=== PATIENT | female | born 1975 | race Caucasian/White ===

== ENCOUNTER 2020-11-01 17:41 | Emergency (ER) | payer OTHER ==
[~2020-11-01] VITALS: Ht 165.1 cm; Wt 92.0 kg
[2020-11-01 17:50] VITALS: BP 133/96
--- NOTE | 2020-11-01 17:59 | PHYS DOC ---
Adult General Chief Complaint Chief Complaint: BACK PAIN OR INJURY HPI HPI Patient is a 45-year-old female presents to the emergency department of right lower back pain. Patient states she did not injure her back, patient states she has been working all day doing housework bending over, patient states that she now has low back pain on the right side, there is no radiation of this pain. Patient denies any midline spinal tenderness pain. Patient denies any urinary problems, denies vaginal discharge, denies STI concerns. Patient denies any numbness or tingling down her legs, denies any strange sensations or pains in her buttocks. Patient denies any other injuries or physical ailments. Patient denies fever or chills, nausea, vomiting, diarrhea, abdominal pains. Patient denies seeing any blood in her urine. Patient reports her pain at a 8/10 1-10 pain scale. Patient denies loss of bowel or bladder. Review of Systems Review of Systems 14 body systems of review of systems have been reviewed. See HPI for pertinent positives and negative responses, otherwise all other systems are negative, nonpertinent or noncontributory. Current Medications Current Medications Patient states she does not take medications at home. Allergies Allergies Patient reports an allergy to Sudafed. Physical Exam Physical Exam Constitutional: Well developed, well nourished, no acute distress, non-toxic appearance. HENT: Normocephalic, atraumatic, bilateral external ears normal, oropharynx moist, no oral exudates, nose normal. Eyes: PERRLA, EOMI, conjunctiva normal, no discharge. Neck: Normal range of motion, no tenderness, supple, no stridor. Cardiovascular:Heart rate regular rhythm, no murmur Lungs & Thorax: Bilateral breath sounds clear to auscultation Abdomen: Bowel sounds normal, soft, no tenderness, no masses, no pulsatile masses. Skin: Warm, dry, no erythema, no rash. Back: no CVA tenderness. Tenderness to palpation right lower lumbar area without radiation of pain, no numbness or tingling down either extremity, no numbness or tingling down either buttock region, no midline spinal tenderness. Full AROM/PROM. Distal cap refill less than 2 seconds, +2 dorsalis pedis/posterior tibial pulses. No edema noted of the lower extremities. No abnormal thoracic spine curvatures, no asymmetry of hips or shoulders noted, no signs of spinal splinting during ambulation. Straight leg raise test negative for nerve root compression or sciatica Extremities: No tenderness, no cyanosis, no clubbing, ROM intact, no edema. Neurologic: Alert and oriented X 3, normal motor function, normal sensory function, no focal deficits noted. Psychologic: Affect normal, judgement normal, mood normal. EKG EKG [] Radiology/Procedures Radiology/Procedures [] Heart Score Risk Factors: Risk Factors: DM, Current or recent (<one month) smoker, HTN, HLP, family history of CAD, obesity. Risk Scores: Risk Factors: DM, Current or recent (<one month) smoker, HTN, HLP, family history of CAD, obesity. Course & Med Decision Making Course & Med Decision Making Pertinent Labs and Imaging studies reviewed. (See chart for details) 45-year-old female presents emergency department with right lower back pain, nontraumatic injury, patient states she had been working all day doing housework bending over, feels like her back pain has exacerbated because of that. Physical examination was consistent with lumbar go, there was no saddle anesthesia noted, this is unlikely, spondylolysis, spondylolisthesis, scoliosis, osteomyelitis, discitis, Shermans disease, pyelonephritis, pancreatitis, osteoid osteoma, or Ho sarcoma, low likelihood of sciatica, herniated nuclear this pulposis. The patient's urine was not infected, there was no blood in her urine suggesting a kidney stone. Patient was given an IM injection of 60 mg Toradol, 80 mg Depo-Medrol IM, 10 mg p.o. Flexeril tablet. Upon reexamination of the patient, patient's pain had reduced well, patient stat es she is feeling much better, nancy with patient diagnosis of lumbago versus a possible lumbar strain, patient will be discharged home with medications of 600 mg Motrin, 10 mg Flexeril tablets, patient gave verbal understanding of discharge home instructions, medication prescription use, follow-up with her doctor soon, return to ER precautions and concerns, patient had no further q uestions or concerns, patient discharged home without incident. Diagnosis of lumbar go, differential diagnosis of muscle strain of the low back right side. Dragon Disclaimer Dragon Disclaimer This electronic medical record was generated, in whole or in part, using a voice recognition dictation system. Departure Departure: Impression: Primary Impression: Lumbago Disposition: 01 DC HOME SELF CARE/HOMELESS Condition: IMPROVED Referrals: PCP,CASIE (PCP) Patient Instructions: Lumbosacral Strain Additional Instructions: Please take medications as prescribed, follow-up with your doctor soon, return to the emergency department for worsening symptoms or other concerns. Scripts Cyclobenzaprine Hcl (CYCLOBENZAPRINE HCL) 10 Mg Tablet 10 MG PO PRN Q8HRS PRN for MUSCLE SPASMS, #10 TAB 0 Refills Prov: LORRIE VALDOVINOS APRN 11/01/20 Ibuprofen (IBUPROFEN) 600 Mg Tablet 600 MG PO PRN Q6-8HRS PRN for PAIN, #20 TAB 0 Refills Prov: LORRIE VALDOVINOS APRN 11/01/20 Problem Qualifiers Primary Impression: Lumbago Chronicity: acute Back pain laterality: right Sciatica presence: without sciatica Qualified Codes: M54.5 - Low back pain LORRIE VALDOVINOS APRN Nov 01, 2020 17:59
[2020-11-01] MEDS ORDERED: KETOROLAC 60 MG/2 ML VIAL. IM ONE (18:15)
[2020-11-01] MEDS ORDERED: methylPREDNISolone ACETATE 80 MG/ML VIAL. IM ONE (18:15)
[2020-11-01 18:43] LABS: BACTERIA,URINE 0 /HPF (0-FEW); BILIRUBIN,URINE NEG (NEG); CLARITY,URINE CLEAR; COLOR,URINE YELLOW; GLUCOSE,URINE NEG (NEG); NITRITE,URINE NEG (NEG); SQUAMOUS EPITHELIAL CELL,UR MOD /LPF; WBC,URINE 0 /HPF (0-4)
[2020-11-01] MEDS ORDERED: CYCLOBENZAPRINE 10 MG TABLET. PO ONE (18:45)
[2020-11-01] MEDS ORDERED: IBUP600T16 PO (18:59)
[2020-11-01] MEDS ORDERED: CYCL-331 PO (18:59)
== END 2020-11-01 19:05 | disposition home or self-care (01) ==
LOC: ER 17:41
DX: M54.5 Low back pain (principal); Z88.8 Allergy status to other drugs, medicaments and biological substances
CPT/HCPCS: 81001; 81025; 96372; 99284; J1040; J1885

== ENCOUNTER 2021-07-25 19:30 | Emergency (ER) | payer OTHER ==
[~2021-07-25] VITALS: Ht 167.6 cm; Wt 86.4 kg
[~2021-07-25 19:30] MED LIST: CYCL-331 PO; IBUP600T16 PO
--- NOTE | 2021-07-25 19:33 | PHYS DOC ---
Past History Past Medical History: Migraines, Other Additional Past Medical Histor: back pain in the past Past Surgical History: Tubal ligation Additional Past Surgical Histo: hernia repair Alcohol Use: Rarely Adult General HPI HPI Patient is a 45-year-old female with a past medical history of migraines who presents with a chief complaint of migraine. States has been going on for about 4 days, whole head, with some photophobia but no phonophobia, mild nausea but no vomiting. [facility] she is taking some Excedrin at home with only minimal relief. [facility] she gets migraines about 5 or 6 times a month and has an upcoming appointment with a neurologist. [facility] she is never had any imaging. States that these migraines started about 5 or 6 years ago. Denies any recent traumas, travels, illnesses, fevers, chest pain, shortness of breath, abdominal pain, dysuria, hematuria, blood in the stool or diarrhea. Denies any numbness/weakness/tingling. Denies any trouble sitting, standing or walking. Review of Systems Review of Systems Review of systems otherwise unremarkable except noted in HPI Allergies Allergies Allergies Coded Allergies Type Severity Reaction Last Updated Verified pseudoephedrine Allergy Unknown Hives 11/01/20 Yes Physical Exam Physical Exam Constitutional: Well developed, well nourished, no acute distress, non-toxic appearance. [] HENT: Normocephalic, atraumatic, bilateral external ears normal, oropharynx moist, no oral exudates, nose normal. [] Eyes: PERRLA, EOMI, conjunctiva normal, no discharge. [] Neck: Normal range of motion, no tenderness, supple, no stridor. [] Cardiovascular:Heart rate regular rhythm, no murmur [] Lungs & Thorax: Bilateral breath sounds clear to auscultation [] Abdomen: soft, no tenderness, no masses, no pulsatile masses. [] Skin: Warm, dry, no erythema, no rash. [] Back: No tenderness, no CVA tenderness. [] Extremities: No tenderness, ROM intact, no edema. [] Neurologic: Alert and oriented X 3, no focal deficits noted. [] Psychologic: Affect normal, judgement normal, mood normal. [] EKG EKG [] Radiology/Procedures Radiology/Procedures [] Heart Score C/O Chest Pain: No Risk Factors: Risk Factors: DM, Current or recent (<one month) smoker, HTN, HLP, family history of CAD, obesity. Risk Scores: Risk Factors: DM, Current or recent (<one month) smoker, HTN, HLP, family history of CAD, obesity. Course & Med Decision Making Course & Med Decision Making Patient is 45-year-old female who presents with a chief complaint of migraine Vital signs not concerning. Physical exam noted above. Patient placed on monitor with IV access established, negative and migraine cocktail given. Steroids, Tylenol and Flexeril added. CT of the head not concerning. On reassessment patient was up, awake alert and oriented no acute distress, stating that her migraine has reduced to a normal headache and was ready to go home. Discussed management at home. Advised to follow-up first thing morning with primary care physician and neurologist to set up follow-up appointments. Advised to come back to the ED with new or concerning symptoms. Patient grateful, verbalized understanding and agreed with plan of discharge. Dragon Disclaimer Dragon Disclaimer This electronic medical record was generated, in whole or in part, using a voice recognition dictation system. Departure Departure: Impression: Primary Impression: Migraine Disposition: 01 HOME / SELF CARE / HOMELESS Condition: GOOD Referrals: PCP,UNKNOWN (PCP) [facility] Patient Instructions: Migraine Headache, Recurrent Migraine Headache Additional Instructions: Thank you for coming into the emergency department tonight and allowing us to take care of you. Please read all the attached information carefully to go back over things we discussed. You can continue Tylenol, ibuprofen, and Benadryl at home as needed and as discussed. Please follow-up in the morning with your primary care physician to set up a follow-up visit as soon as possible for reevaluation. Please come back to the ED with new or concerning symptoms as discussed. MARBIN ESTEVEZ MD Jul 25, 2021 19:33
[2021-07-25] MEDS ORDERED: IV RINGERS SOLUTION,LACTATED 1,000 ML IV ONE (20:00)
[2021-07-25] MEDS ORDERED: ONDANSETRON PF 4 MG/2 ML VIAL. IVP ONE (20:30)
[2021-07-25] MEDS ORDERED: KETOROLAC 15 MG/ML VIAL. IVP ONE (20:30)
[2021-07-25] MEDS ORDERED: PROCHLORPERAZINE 10 MG/2 ML VIAL. IV ONE (20:30)
[2021-07-25] MEDS ORDERED: diphenhydrAMINE 50 MG/ML VIAL IVP ONE (20:30)
--- NOTE | 2021-07-25 20:53 | RAD ---
Exam: CT head INDICATION: New onset migraines TECHNIQUE: Sequential axial images through the head were obtained without the administration of IV co ntrast. Exposure: One or more of the following in the visualized dose reduction techniques were utilized for this examination: 1. Automated exposure control 2. Adjustment of the MA and/or KV according to patient size 3. Use of iterative of reconstructive technique Comparisons: None FINDINGS: No focal parenchymal lesion or hemorrhage is identified. There is no midline shift or sulcal effaceme nt. No acute vascular territory infarction is identified. Merritt-white distinction is preserved. The ventricular system is within normal limits without compression hydrocephalus. The basal cisterns are well maintained. The visualized portions of the paranasal sinuses and mastoid air cells are well-pneumatized. No acute fractures. IMPRESSION: No acute intracranial abnormality. Electronically signed by: Mae Hebert MD (07/25/2021 8:50 PM) [facility]
[2021-07-25] MEDS ORDERED: ACETAMINOPHEN 500 MG TABLET PO ONE (21:15)
[2021-07-25] MEDS ORDERED: DEXAMETHASONE 4 MG TABLET PO ONE (21:15)
[2021-07-25] MEDS ORDERED: CYCLOBENZAPRINE 10 MG TABLET. PO ONE (21:15)
[2021-07-25 21:50] VITALS: BP 116/68
== END 2021-07-25 21:30 | disposition home or self-care (01) ==
LOC: ER 19:30
DX: G43.909 Migraine, unspecified, not intractable, without status migrainosus (principal); Z88.8 Allergy status to other drugs, medicaments and biological substances
CPT/HCPCS: 70450; 81025; 96361; 96374; 96375; 99284; J0780; J1200; J1885; J2405; J7120; J8540; 99285-25